=== PATIENT | female | born 1955 | race Caucasian/White ===

== ENCOUNTER 2022-10-12 05:52 | Inpatient (IN) ==
[2022-10-12] MEDS ORDERED: IOPAMIDOL 100 ML BOTTLE IV ONE (05:53)
--- NOTE | 2022-10-12 06:03 | Emergency Department Note ---
HPI General Chief complaint: Abdominal Pain Stated complaint: abdominal pain Time Seen by Provider: 10/12/22 06:02 Source: patient and EMS Mode of arrival: EMS Limitations: no limitations History of Present Illness HPI Narrative: Narrative: Patient is a 67-year-old female with a history significant for Crohn's disease who presents to the emergency department as a transfer from [place] due to concern for appendicitis or diverticulitis. Patient states that on Saturday she began to have nausea and vomiting. She thought maybe it was something that she ate, but early yesterday began to have significant abdominal pain. This pain is worsening, so she decided to go to the emergency department in [place]. At the emergency department they found right and left lower quadrant tenderness. They found an elevated white blood cell count. Her labs including chemistry, hepatic panel, and urine were reassuring overall. Due to right and left lower quadrant abdominal tenderness they became concerned about the possibility of appendicitis or diverticulitis, and do not have a CT scanner, so called for transfer to the [facility] emergency department. Patient endorses worsening of her pain with the bumps of the car on the way to the emergency department. She denies any other palliative or provocative factors of her pain. She denies any other symptoms at this time. Related Data Home Medications Medication Instructions Recorded Confirmed multivitamin (One Daily tablet) 1 ea PO DAILY 11/05/17 10/12/22 sulfasalazine 500 mg tablet 1 g PO TID 10/20/20 10/12/22 magnesium oxide 500 mg capsule 500 mg PO QDAY 11/07/21 10/12/22 Allergies Allergy/AdvReac Type Severity Reaction Status Date / Time No Known Drug Allergies Allergy Verified 10/12/22 05:58 Review of Systems ROS ROS Narrative: Narrative: Constitutional: Reports chills; Denies fever or weakness ENT ED: Denies throat pain or rhinorrhea Cardiovascular: Denies chest pain or edema Respiratory: Denies shortness of breath or cough Gastrointestinal: Reports abdominal pain, nausea and vomiting; Denies diarrhea, constipation, hematochezia or melena Musculoskeletal: Denies back pain or myalgia Integumentary: Denies rash or lesions Neurological: Denies headache or weakness [facility] Narrative Patient History Narrative: Narrative: Medical/Surgical/Family History All Active Problems (Updated 10/12/22 @ 06:47 by Riccardo Sawant MD) Abdominal pain (Acute) Medicare annual wellness visit, subsequent (Acute) Asymptomatic menopausal state (Chronic) Establishing care with new doctor, encounter for (Chronic) History of colonoscopy (Chronic ~2018) Crohn's disease (Chronic ~2000) Medical History Asymptomatic menopausal state Crohn's disease (~2000) Establishing care with new doctor, encounter for Medicare annual wellness visit, initial Medicare annual wellness visit, subsequent Surgical History History of colonoscopy (~2018) Performed by Dr. Lai Family History Father , Age 76 CHF (congestive heart failure) Social History Smoking Status: Former smoker Alcohol Intake Frequency: a few times a week Substance Use: does not use Exam Narrative Narrative: Narrative: General Limitations: no limitations General appearance: Present alert and in no apparent distress; Absent anxious, appears intoxicated or sleepy Head Head: Present atraumatic and normocephalic Eye Eye: Present EOMI; Absent scleral icterus or nystagmus ENT ENT: Present mucous membranes moist; Absent nasal congestion Neck Neck: Present full ROM and trachea midline Chest Chest: Present normal inspection and symmetric chest wall rise Respiratory Respiratory: Present normal lung sounds bilaterally; Absent respiratory distress, rales/crackles, wheezes, stridor or accessory muscle use Cardiovascular Cardiovascular: Present regular rate, normal rhythm and normal heart sounds Adbominal Abdominal: Present soft, tenderness, guarding and normal bowel sounds; Absent distention, rebound or rigidity Extremities Extremities: Present normal inspection and full ROM Back Back: Present normal inspection and full ROM; Absent CVA tenderness (R) or CVA tenderness (L) Neurological Neurological: Present alert and oriented X3 Psychiatric Psychiatric: Present normal affect and normal mood Skin Skin: Present warm (WNL), dry and normal color Course Vital Signs Vital signs: Vital Signs Temperature 99.2 F H 10/12/22 05:53 Pulse Rate 86 10/12/22 05:53 Respiratory Rate 16 10/12/22 05:53 Blood Pressure 121/71 10/12/22 05:53 Pulse Oximetry (%) 100 10/12/22 05:53 Oxygen Delivery Method Room Air 10/12/22 05:53 Temperature 99.2 F H 10/12/22 05:53 Pulse Rate 85 10/12/22 05:57 Respiratory Rate 16 10/12/22 05:53 Blood Pressure 121/71 10/12/22 05:57 Pulse Oximetry (%) 98 10/12/22 05:57 Oxygen Delivery Method Room Air 10/12/22 05:53 MDM MDM Narrative Medical decision making narrative: Narrative: Patient is a 67-year-old female who presents to the emergency department due to abdominal pain, and concern for appendicitis versus diverticulitis. Patient's exam is concerning for these possibilities, but it is also possible that her symptoms are due to Crohn's flare. CT scan is pending at this time. Patient has been signed out to Dr. Zuniga. Discharge Plan Patient/Caregiver Discharge Instructions Pt seen by CLASSIFYING MACHINE OPERATOR/PA only: No Clinical Impression: Abdominal pain Patient Disposition: Still a Patient Follow up with: Sabrina Slaughter PA-C [Primary Care Provider] - Prescriptions: No Action sulfasalazine 500 mg tablet 1 g PO TID Rx Instructions: give with food (meal/snack) magnesium oxide 500 mg capsule 500 mg PO QDAY multivitamin [One Daily] 1 EACH tablet 1 ea PO DAILY
--- NOTE | 2022-10-12 08:13 | Cat Scan Report ---
History: Lower abdominal pain, cramping, vomiting, Crohn's disease TECHNIQUE: Following injection of intravenous nonionic contrast patient was imaged during the portal venous phase from above the diaphragm through the symphysis pubis. Sagittal and coronal reformats were created. The radiation exposure was limited using dose reduction technology. Small hiatus hernia is present. The liver and spleen are normal in size and homogeneous. The gallbladder and bile ducts are normal. No mass or inflammation are present in the pancreas. The adrenals and kidneys are normal. There is no kidney stone or hydronephrosis. The aorta and inferior vena cava are normal. A small plaque in the distal left common iliac artery. The appendix is thickened and inflamed and contains multiple appendicoliths. The appendix measures up to 1 cm in transverse dimension. There is moderate stranding of the surrounding fat. No abscess is present and there is no evidence of perforation. There is narrowing of the lumen of the adjacent distal ileum. There is increased deposition of submucosal fat in the ileum, consistent with chronic Crohn's disease. There is no evidence of active Crohn's disease. Large intestine is normal and contains a moderate amount of liquefied stool. There are no diverticula. Small amount of free fluid is present in the posterior cul-de-sac. The uterus and ovaries are atrophic. Urinary bladder appears normal. IMPRESSION: Acute appendicitis Interpreted and Authenticated by: Aditya Duong 10/12/22
[2022-10-12] MEDS ORDERED: HYDROmorphone 0.5 MG/0.5 ML SYRINGE IV PRN (09:15)
[2022-10-12] MEDS ORDERED: METOCLOPRAMIDE 10 MG/2 ML VIAL IV PRN (09:19)
[2022-10-12] MEDS: CIPROFLOXACIN 400 MG/200 ML BAG IV SCH ×2 (09:26→21:33)
--- NOTE | 2022-10-12 09:46 | Emergency Department Note ---
Course Course Course Narrative: I assumed care of patient at [address] results. I performed evaluation on patient at bedside she still having some right lower quadrant tenderness. She states her pain is currently 4/10. Nausea is controlled. CT abdomen pelvis obtained with image reviewed myself which revealed acute appendicitis. Labs were reviewed from outside ED which did show leukocytosis. Case was discussed with on-call surgeon, Dr. Maddox who came down to evaluate the patient. Dr. Maddox has agreed to admit the patient and will treat with antibiotics as patient wants to avoid surgery at this time. Plan of care was discussed with patient she expressed verbal understand agreement of plan. Vital Signs Vital signs: Vital Signs Temperature 99.2 F H 10/12/22 05:53 Pulse Rate 86 10/12/22 05:53 Respiratory Rate 16 10/12/22 05:53 Blood Pressure 121/71 10/12/22 05:53 Pulse Oximetry (%) 100 10/12/22 05:53 Oxygen Delivery Method Room Air 10/12/22 05:53 Temperature 99.2 F H 10/12/22 05:53 Pulse Rate 91 H 10/12/22 09:31 Respiratory Rate 16 10/12/22 05:53 Blood Pressure 116/71 10/12/22 09:31 Pulse Oximetry (%) 95 10/12/22 09:31 Oxygen Delivery Method Room Air 10/12/22 05:53 MDM MDM Narrative Medical decision making narrative: Narrative: Differential Diagnosis Differential Diagnosis: Appendicitis Medical Records Medical records reviewed: Yes I reviewed the patient's medical records. Lab Data Lab results reviewed: Yes I reviewed the patient's lab results. Radiology Data Radiology results reviewed: Yes I reviewed the patient's radiology results. Radiology results narrative: CT abdomen pelvis obtained with image reviewed myself, agree with radiologist interpreted Core Measures AMI Core Measures Followed: Yes Discharge Plan Patient/Caregiver Discharge Instructions Pt seen by IT TECHNICAL SUPPORT SPECIALIST/PA only: No Clinical Impression: Acute appendicitis, Abdominal pain Patient Disposition: Xfer As Outpt/Obs ([facility]) Condition: Good Follow up with: Sabrina Slaughter PA-C [Primary Care Provider] - Prescriptions: No Action sulfasalazine 500 mg tablet 1 g PO TID Rx Instructions: give with food (meal/snack) magnesium oxide 500 mg capsule 500 mg PO QDAY multivitamin [One Daily] 1 EACH tablet 1 ea PO DAILY
--- NOTE | 2022-10-12 09:49 | General Surgery Consult Note ---
HPI Date of Consult Consult Date: 10/12/22 Requesting physician: Lester Zuniga Primary Care Provider: Sabrina Slaughter PA-C Consult Narrative Chief complaint: Abdominal Pain Reason for consult: Acute Appendicitis History of present illness: Erika is seen in consultation today after presenting to the ER in the middle of the night with severe RLQ abdominal pain that had been much more mild and intermittent for a day or two prior to that. She has a longstanding diagnosis of Crohn's but doesn't really experience Crohn's flares per her history. She is on a Sulfasalazine based drug chronically for that. She has been in overall excellent health and denies any significant Cardiac or Pulmonary issues. She is not on any oral anticoagulants. Her last Colonoscopy was reportedly several years ago and was normal. She has not had prior abdominal surgery. A CT scan here demonstrated findings of Acute Appendicitis with periappendiceal inflammatory change. Also seen were chronic changes in the Terminal Ileum consistent with Crohn's. cc:: CC: Review of Systems All systems: reviewed and no additional remarkable complaints except as stated Constitutional Additional comments: has been well, no changes EENT Additional comments: no ENT changes Cardiovascular Additional comments: no chest pain or palpitations Respiratory Additional comments: no cough or SOB Gastrointestinal Additional comments: see HPI Genitourinary Additional comments: no changes Musculoskeletal Additional comments: no new issues Integumentary Additional comments: no changes Neurological Additional comments: no changes Psychiatric Additional comments: no issues Hematologic/Lymphatic Additional comments: no known bleeding issus PFSH PFSH All Active Problems Abdominal pain (Acute) Acute appendicitis (Acute) Medicare annual wellness visit, subsequent (Acute) Asymptomatic menopausal state (Chronic) Establishing care with new doctor, encounter for (Chronic) History of colonoscopy (Chronic ~2018) Crohn's disease (Chronic ~2000) Medical History Asymptomatic menopausal state Crohn's disease (~2000) Establishing care with new doctor, encounter for Medicare annual wellness visit, initial Medicare annual wellness visit, subsequent Surgical History History of colonoscopy (~2018) Performed by Dr. 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[employer] smoking status: Former smoker quit date: 04/22/99 pack-years: 19 alcohol intake frequency: a few times a week substance use type: does not use MEDS/ALLERGIES Home Medications and Allergies Home Medications Medication Instructions Recorded Confirmed Type multivitamin (One Daily tablet) 1 ea PO DAILY 11/05/17 10/12/22 History sulfasalazine 500 mg tablet 1 g PO TID 10/20/20 10/12/22 History magnesium oxide 500 mg capsule 500 mg PO QDAY 11/07/21 10/12/22 History Allergies Allergy/AdvReac Type Severity Reaction Status Date / Time No Known Drug Allergies Allergy Verified 10/12/22 05:58 Physical Examination Vital Signs Vital signs: Temp Pulse Resp BP Pulse Ox O2 Del Method 99.2 F H 91 H 16 116/71 95 Room Air 10/12/22 05:53 10/12/22 09:31 10/12/22 05:53 10/12/22 09:31 10/12/22 09:31 10/12/22 05:53 General physical appearance General physical exam: other (looks non toxic, well, NAD ) Eyes Eye exam: normal ocular movement; negative icteric ENT ENT exam: other (normal facial exam ) Head Head exam IM: Present atraumatic, normal inspection and normocephalic Neck Neck exam: trachea midline, no lymphadenopathy and other Cardiovascular Cardiovascular exam IM: Present normal rate and rhythm Respiratory Respiratory exam: normal respiratory effort Abdomen Abdomen: Present soft (soft and non distended, focally tender in the RLQ without tenderness elsewhere ) Integumentary Integumentary: Present other (normal appearing intact skin ) Neurologic Neurologic: Present other (normal affect ) Psychiatric Psychiatric: Present oriented to time, oriented to person and oriented to place Results Labs Labs: All other labs normal. A/P Assessment and plan (1) Acute appendicitis: Assessment and plan: Acute Appendicitis Options and issues are reviewed and discussed. Surgery is recommended and Risks, Benefits, Potential Complications and Alternative Treatment Options are all reviewed and discussed at length and also discussed in the context of her known TI Crohn's Disease. We discussed that, although I typically recommend surgery, non operative management of otherwise uncomplicated Acute Appendicitis has been shown to be a non inferior treatment option over the course of many multinational studies now. Pros and Cons of operative vs non operative mgmt approaches have been reviewed as well She agrees to come into the hospital for IV Antibiotics and will see she feels over time. She does NOT wish to go to the OR right now and is will see how things go for a period of time on IV Antibiotics. Admission for IV Fluids, antibiotics, pain control and close clinical observation for now per her wishes Status: Acute Qualifiers: Acute appendicitis type: unspecified acute appendicitis type Qualified Code(s): K35.80 - Unspecified acute appendicitis Time Spent With Patient Time: Total time spent is greater than 50% in coordination of care (as documented) at patient's floor/unit and/or counseling patient:
[2022-10-12] MEDS: metroNIDAZOLE 500 MG/100 ML BAG IV SCH ×3 (10:11→22:53)
[2022-10-12] MEDS: DEXTROSE 5%-LR 1,000 ML IV SCH ×2 (11:57→21:34)
[2022-10-12] MEDS ORDERED: ACETAMINOPHEN 650 MG/65 ML BAG IV PRN (13:11)
[2022-10-12] MEDS: ACETAMINOPHEN 325 MG TABLET PO PRN ×2 (13:44→22:00)
[2022-10-12] MEDS: sulfaSALAzine 500 MG TABLET PO SCH ×2 (15:34→22:00)
[2022-10-12] MEDS: MEROPENEM 0.5 GM in 0.9 % SODIUM CHLORIDE 50 ML IV SCH (20:35)
[2022-10-13] MEDS: DEXTROSE 5%-LR 1,000 ML IV SCH ×3 (04:27→16:47)
[2022-10-13] MEDS: MEROPENEM 0.5 GM in 0.9 % SODIUM CHLORIDE 50 ML IV SCH ×3 (05:09→21:26)
[2022-10-13] MEDS: metroNIDAZOLE 500 MG/100 ML BAG IV SCH ×3 (05:48→22:05)
[2022-10-13 06:43] LABS: Hematocrit 38.5 % (34.1-44.9); Hemoglobin 12.9 g/dL (11.2-15.7); Mean Cell Volume 97.2 fL (80.0-100.0); Mean Corpuscular HGB Conc 33.5 g/dL (31.0-36.0); Mean Platelet Volume 10.2 fL (8.8-12.5); Platelet Count 303 K/mcL (140-440); RBC 3.96 M/mcL (3.59-5.38); Red Cell Distribution Width 12.3 % (11.5-14.5)
[2022-10-13 07:24] LABS: Blood Urea Nitrogen 11 mg/dL (8-23); Calcium 9.5 mg/dL (8.6-10.4); Carbon Dioxide 21 mmol/L (22-30); Chloride 105 mmol/L (96-108); Glomerular Filtration Rate 89; Glucose 112 mg/dL (70-105)
[2022-10-13] MEDS ORDERED: OMEPRAZOLE 20 MG CAPSULE PO SCH (07:30)
[2022-10-13] MEDS: MAG HYDROX/AL HYDROX/SIMETH 30 ML ORAL.SUSP PO PRN ×2 (07:45→15:16)
[2022-10-13] MEDS: sulfaSALAzine 500 MG TABLET PO SCH ×3 (08:43→20:12)
[2022-10-13] MEDS: CIPROFLOXACIN 400 MG/200 ML BAG IV SCH ×2 (09:38→20:11)
--- NOTE | 2022-10-13 13:48 | General Surgery Progress Note ---
SUBJECTIVE Subjective Patient information: Note initiated : 10/13/22 at 730am Service Date, if different from initiated Date: [] Patient: Erika Alcantar 67 y/o F admitted on 10/12/22. Chief Complaint: [] feels better this am, far less pain, wondering about going out on oral ABs for family wedding heartburn is significant this am Constitutional Vitals: Vital Signs Temp Pulse Resp BP Pulse Ox O2 Del Method 98.8 F 80 16 111/71 98 Room Air 10/13/22 12:00 10/13/22 12:00 10/13/22 12:00 10/13/22 12:00 10/13/22 12:00 10/13/22 12:00 Period Temp Pulse Resp BP Sys/Freeman Pulse Ox O2 Del Method O2 Flow Rate Last 24 Hr 97.9 F-100 F 80-95 14-16 110-122/57-72 92-98 Room Air-Room Air Intake and Output 10/13/22 10/13/22 10/13/22 03:59 11:59 19:59 Intake Total 1312 1350 Balance 1312 1350 Intake & Output: Intake & Output 10/13/22 10/13/22 10/13/22 03:59 11:59 19:59 Intake Total 1312 1350 Balance 1312 1350 Intake: IV 1312 1350 Dextrose 5%-Lactated Ringers 1, 962 1000 000 ml @ 100 mls/hr IV .Q10H [facility] Rx#:[id number] Merrem 0.5 gm In Sodium 50 50 Chloride 0.9% 50 ml @ 100 mls/ hr IV Q8H [facility] Rx#:[id number] Other: Stool Size Moderate Stool Color Yellow Stool Consistency Watery # Voids 1 Exam: alert, pleasant, fully conversant Respiratory Respiratory exam: Present normal respiratory exam Cardiovascular Cardiovascular exam: Present normal rate and rhythm GI/Abdominal Additional comments: soft and non distended, residual RLQ tenderness but less than yesterday and no guarding - remainder of belly is soft and non tender Extremities Exam Additional comments: well perfused A/P Assessment and plan (1) Acute appendicitis: Assessment and plan: Acute Appendicitis She has opted for a non operative approach thus far and appears to be improving clinically. WBC is up but vitals look great and again she indicates he feels quite a bit better this am She is asking about discharge home on Oral ABs for a family function later today but she knows we're not recommending that for her at this time Clear sips today, will check back on her early this afternoon Status: Acute Qualifiers: Acute appendicitis type: unspecified acute appendicitis type Qualified Code(s): K35.80 - Unspecified acute appendicitis Time Spent With Patient Time: Total time spent is greater than 50% in coordination of care (as documented) at patient's floor/unit and/or counseling patient:
[2022-10-13] MEDS: ACETAMINOPHEN 325 MG TABLET PO PRN (18:59)
[2022-10-13] MEDS: PANTOPRAZOLE 40 MG VIAL IV SCH (20:11)
[2022-10-13] MEDS ORDERED: POTASSIUM CHLORIDE 40 MEQ in DEXTROSE 5%-1/2NS 1,000 ML IV SCH (21:00)
[2022-10-13] MEDS: DEXTROSE 5%-1/2NS W/40MEQ KCL 1,000 ML IV SCH (22:30)
[2022-10-13] MEDS ORDERED: POTASSIUM CHLORIDE 20 MEQ/10 ML VIAL IV ONE (22:30)
[2022-10-14] MEDS: MEROPENEM 0.5 GM in 0.9 % SODIUM CHLORIDE 50 ML IV SCH ×3 (05:09→21:11)
[2022-10-14] MEDS: metroNIDAZOLE 500 MG/100 ML BAG IV SCH ×3 (05:49→21:46)
[2022-10-14 06:36] LABS: Hematocrit 36.9 % (34.1-44.9); Hemoglobin 12.1 g/dL (11.2-15.7); Mean Cell Volume 97.9 fL (80.0-100.0); Mean Corpuscular HGB Conc 32.8 g/dL (31.0-36.0); Mean Platelet Volume 10.6 fL (8.8-12.5); Platelet Count 293 K/mcL (140-440); RBC 3.77 M/mcL (3.59-5.38); Red Cell Distribution Width 12.3 % (11.5-14.5); WBC 14.5 K/mcL (4.5-11.0)
[2022-10-14 07:16] LABS: Blood Urea Nitrogen 14 mg/dL (8-23); Calcium 9.5 mg/dL (8.6-10.4); Carbon Dioxide 20 mmol/L (22-30); Chloride 102 mmol/L (96-108); Glomerular Filtration Rate 65; Glucose 113 mg/dL (70-105)
[2022-10-14] MEDS: PANTOPRAZOLE 40 MG VIAL IV SCH ×2 (08:08→20:02)
[2022-10-14] MEDS: CIPROFLOXACIN 400 MG/200 ML BAG IV SCH ×2 (08:14→20:02)
--- NOTE | 2022-10-14 08:54 | General Surgery Progress Note ---
SUBJECTIVE Subjective Patient information: Note initiated : 10/14/22 at 8:49 am Service Date, if different from initiated Date: [] Patient: Erika Alcantar 67 y/o F admitted on 10/12/22. Chief Complaint: [] Feels much improved this am with far less abdominal pain and just feels better overall. Constitutional Vitals: Vital Signs Temp Pulse Resp BP Pulse Ox O2 Del Method 98.6 F 84 16 114/71 95 Room Air 10/14/22 06:35 10/14/22 06:35 10/14/22 06:35 10/14/22 06:35 10/14/22 06:35 10/14/22 06:35 Period Temp Pulse Resp BP Sys/Freeman Pulse Ox O2 Del Method O2 Flow Rate Last 24 Hr 98.2 F-100.2 F 80-87 16-16 108-119/64-90 93-98 Room Air-Room Air Intake and Output 10/13/22 10/14/22 10/14/22 19:59 03:59 11:59 Intake Total 1630 590 150 Output Total 0 Balance 1630 590 150 Weight 179 lb 1.6 oz Intake & Output: Intake & Output 10/13/22 10/14/22 10/14/22 19:59 03:59 11:59 Intake Total 1630 590 150 Output Total 0 Balance 1630 590 150 Weight 179 lb 1.6 oz Intake: IV 1150 350 150 Dextrose 5%-Lactated Ringers 1, 1000 000 ml @ 100 mls/hr IV .Q10H [facility] Rx#:[id number] Merrem 0.5 gm In Sodium 50 50 50 Chloride 0.9% 50 ml @ 100 mls/ hr IV Q8H [facility] Rx#:[id number] Oral 0 240 GI Tube Flush 480 Output: Void Amount 0 Other: Meal Lunch Percent of Meal Consumed 0% Feeding Ability Independent Stool Size Large Stool Color Green Stool Consistency Liquid # Voids 1 1 # Bowel Movements 1 Exam: Looks good, non toxic, no distress Respiratory Respiratory exam: Present normal respiratory exam Cardiovascular Cardiovascular exam: Present RRR GI/Abdominal Additional comments: soft and non distended, minimal tenderness in the RLQ and belly otherwise benign Extremities Exam Additional comments: well perfusd A/P Assessment and plan (1) Abdominal pain: Assessment and plan: Acute Appendicitis She wanted an attempt at non operative mgmt and she seems to be improving significantly Continue IV ABs for now and start Clear Liquids Possible discharge tomorrow if continues to improve in her current manner Status: Acute Qualifiers: Abdominal location: right lower quadrant Qualified Code(s): R10.31 - Right lower quadrant pain (2) Acute appendicitis: Status: Acute Qualifiers: Acute appendicitis type: unspecified acute appendicitis type Qualified Code(s): K35.80 - Unspecified acute appendicitis Time Spent With Patient Time: Total time spent is greater than 50% in coordination of care (as documented) at patient's floor/unit and/or counseling patient:
[2022-10-14] MEDS ORDERED: DEXTROSE 5%-1/2NS W/40MEQ KCL 1,000 ML IV SCH (09:00)
[2022-10-14] MEDS: sulfaSALAzine 500 MG TABLET PO SCH ×3 (09:28→20:02)
[2022-10-14] MEDS: DEXTROSE 5%-1/2NS W/40MEQ KCL 1,000 ML IV SCH (09:53)
[2022-10-14] MEDS: POTASSIUM CHLORIDE 40 MEQ in DEXTROSE 5%-1/2NS 1,000 ML IV SCH ×2 (10:18→23:48)
[2022-10-15] MEDS: MEROPENEM 0.5 GM in 0.9 % SODIUM CHLORIDE 50 ML IV SCH (05:11)
[2022-10-15] MEDS: metroNIDAZOLE 500 MG/100 ML BAG IV SCH (05:45)
[2022-10-15] MEDS: PANTOPRAZOLE 40 MG VIAL IV SCH (08:01)
[2022-10-15] MEDS: CIPROFLOXACIN 400 MG/200 ML BAG IV SCH (08:05)
--- NOTE | 2022-10-15 09:04 | General Surgery Progress Note ---
SUBJECTIVE Subjective Patient information: Note initiated : 10/15/22 at 9:01 am Service Date, if different from initiated Date: [] Patient: Erika Alcantar 67 y/o F admitted on 10/14/22. Chief Complaint: Looks and feels well, admission symptoms have essentially resolved Constitutional Vitals: Vital Signs Temp Pulse Resp BP Pulse Ox O2 Del Method 98.2 F 78 16 122/73 96 Room Air 10/15/22 08:00 10/15/22 08:00 10/15/22 08:00 10/15/22 08:00 10/15/22 08:00 10/15/22 08:00 Period Temp Pulse Resp BP Sys/Freeman Pulse Ox O2 Del Method O2 Flow Rate Last 24 Hr 98.1 F-98.8 F 76-87 16-16 103-122/65-90 94-98 Room Air-Room Air Intake and Output 10/14/22 10/15/22 10/15/22 19:59 03:59 11:59 Intake Total 150 1559 150 Output Total 1 Balance 149 1559 150 Weight 176 lb 11.2 oz Intake & Output: Intake & Output 10/14/22 10/15/22 10/15/22 19:59 03:59 11:59 Intake Total 150 1559 150 Output Total 1 Balance 149 1559 150 Weight 176 lb 11.2 oz Intake: IV 150 1309 150 Merrem 0.5 gm In Sodium 50 50 50 Chloride 0.9% 50 ml @ 100 mls/ hr IV Q8H [facility] Rx#:[id number] Potassium Chloride 40 Meq In 959 Dextrose 5%-1/2Ns IV Solution 1 ,000 ml @ 75 mls/hr IV Q13H [facility] Rx#:[id number] Oral 250 Output: Void Amount 1 Other: Stool Size Large Stool Color Yellow Stool Consistency Watery Liquid # Voids 1 # Bowel Movements 1 1 Exam: looks and feels well, pleasantly conversant Respiratory Respiratory exam: Present normal respiratory exam Cardiovascular Cardiovascular exam: Present normal rate and rhythm GI/Abdominal Additional comments: soft and non tender, non distended, no mass Extremities Exam Additional comments: well perfused A/P Assessment and plan (1) Acute appendicitis: Assessment and plan: Resolving Appendicitis in the setting of patient directed non operative management Doing well with resolution of presenting symptoms Ok for home today on oral ABs with clinic follow up next week Importance of return to ER or contacting us directly should any recurrence occur is discussed and reviewed at length Status: Acute Qualifiers: Acute appendicitis type: unspecified acute appendicitis type Qualified Code(s): K35.80 - Unspecified acute appendicitis Time Spent With Patient Time: Total time spent is greater than 50% in coordination of care (as documented) at patient's floor/unit and/or counseling patient:
[2022-10-15] MEDS: sulfaSALAzine 500 MG TABLET PO SCH (09:29)
--- NOTE | 2022-10-22 08:17 | Discharge Summary ---
DATE OF ADMISSION: 10/14/2022 DATE OF DISCHARGE: 10/15/2022 ADMITTING PHYSICIAN: Cain Maddox M.D. DISCHARGING PHYSICIAN: Cain Maddox M.D. ADMITTING DIAGNOSIS: Acute appendicitis. DISCHARGE DIAGNOSIS: Resolved acute appendicitis. INDICATIONS FOR ADMISSION AND HOSPITAL COURSE: The patient is a 67-year-old female who presented to the emergency room on 10/12/2022 with worsening right lower quadrant pain and discomfort. A CT scan was obtained, which confirmed findings consistent with acute appendicitis, and we were asked to see her in consultation. She had a longstanding history of Crohn's disease as well, did have evidence of Crohn's disease in the distal ileum, but there was no evidence of an active Crohn's flare. 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 She wished very much to not be recovering from surgery and so in discussing that with her and also in the context of her Crohn's disease, she wished to try IV antibiotics to see if this would resolve nonoperatively. To that end, she was admitted to the hospital and placed on IV antibiotics and over the next 48 hours, improved dramatically with resolution of fevers, normalization of her white count and to the point that she was ready for discharge by 10/15/2022. At that point, she was discharged home on oral antibiotics with plans to follow up with Dr. Maddox in clinic. IN-HOSPITAL PROCEDURES: None. IN-HOSPITAL COMPLICATIONS: None. DISPOSITION: Home with clinic followup. BW:[email or web address] Job ID: [id number] Doc ID: [id number] Cain Maddox M.D.
== END 2022-10-15 11:10 | disposition home or self-care (01) ==
LOC: ED 05:52 → MEDSUR 05:52
PROVIDERS: ADMIT Surgery Surgical Critical Care; ATTEND Surgery Surgical Critical Care